=== PATIENT | male | born 1935 | race Caucasian/White ===

== ENCOUNTER → 2023-07-22 | Outpatient (CLI) | payer MEDICARE ==
[2023-07-22 16:13] LABS: HCT 44.7 % (39.6-50.0); MCH 29.5 pg (27.0-32.0); MCHC 33.6 g/dL (32.0-37.0); Mean Platelet Volume 11.5 FL (9.5-12.2); NRBC Per 100 WBC 0 X 10*3/uL (0.00-0.01); Platelet Count 193 X 10*3/uL (140-440); RBC 5.08 X 10*6/uL (4.40-5.60); RDW 13.8 % (11.5-14.5); WBC 6.58 X 10*3/uL (4.50-10.00)
[2023-07-22 16:25] LABS: Prothrombin Time 11.3 sec (10.0-12.5)
[2023-07-22 18:32] LABS: ALT 24 U/L (10-49); AST 30 U/L (14-35); Albumin 4.4 g/dL (3.8-4.9); Albumin/Globulin Ratio 1.83 Ratio (1.60-3.17); Alkaline Phosphatase 72 U/L (41-126); Blood Urea Nitrogen 12.3 mg/dL (9.0-27.0); Calcium 9.7 mg/dL (8.7-10.3); Carbon Dioxide 22.9 mmol/L (21.6-31.8); Chloride 107 mmol/L (96-109); Globulin 2.4 g/dL (1.6-3.3); Glucose 94 mg/dL (70-110); Potassium 4.5 mmol/L (3.5-5.5); Sodium 142 mmol/L (135-145); Total Bilirubin 0.5 mg/dL (0.3-1.2); Total Protein 6.8 g/dL (6.2-8.2)
[2023-07-22 20:36] LABS: Appearance,Urine Cloudy (Clear); Bilirubin,Urine Negative (Negative); Blood,Urine Trace (Negative); Color,Urine Yellow (Yellow); Ketones,Urine Negative (Negative); Nitrite,Urine Positive (Negative); PH, Urine 5.5; Specific Gravity,Urine 1.017 (1.001-1.030); Urobilinogen,Urine 0.2 E.U./DL
[2023-07-22 20:39] LABS: Bacteria,Urine 3+ (None Seen)
== END | disposition home or self-care (01) ==
LOC: LABPAT 11:05
PROVIDERS: ATTEND Orthopaedic Surgery
DX: Z01.818 Encounter for other preprocedural examination (principal); M17.11 Unilateral primary osteoarthritis, right knee
CPT/HCPCS: 80053; 81001; 85027; 85610; 85730; 87070; 93005

== ENCOUNTER 2023-08-19 05:41 | Day surgery (SDC) | payer MEDICARE ==
[~2023-08-19 05:41] MED LIST: ACETAMINOPHEN TAB 500 MG TAB PO PRN; GABAPENTIN 300 MG CAP PO PRN; MELOXICAM 7.5 MG TAB PO PRN; TRANEXAMIC 1,000 MG/100ML-NACL 1,000 MG in SALINE 1 100ML.BAG IVPB PRN; VANCOMYCIN 1,000 MG in SODIUM CHLORIDE 0.9% 250 ML IVPB PRN
[2023-08-19] MEDS ORDERED: HYDROmorphone 0.5 MG/0.5 ML SYRINGE IVP PRN ×4 (05:52→08:43)
[2023-08-19] MEDS ORDERED: ONDANSETRON 4 MG/2 ML VIAL IVP ONE ×2 (05:52→06:24)
[2023-08-19] MEDS ORDERED: LIDOCAINE 1% (10MG/ML) FOR IV START INTRADERMA PRN (05:52)
[2023-08-19] MEDS ORDERED: MIDAZOLAM 2 MG/2 ML VIAL IVP ONE (06:38)
[2023-08-19] MEDS ORDERED: DEXAMETHASONE SOD PHOSPHATE 4 MG/ML 1 ML VIAL IVP ONE (06:41)
[2023-08-19] MEDS: LACTATED RINGERS 1,000 ML IV SCH ×2 (06:41→10:05)
[2023-08-19] MEDS ORDERED: ceFAZolin 1,000 MG in SODIUM CHLORIDE 0.9% 1,000 ML IRRIGATION ONE (07:01)
--- NOTE | 2023-08-19 07:28 | P.ANPRN ---
Procedure Note - Anesthesia - Nerve Block Performed Right Adductor Canal Infusion Time Out Performed: Yes Date of Procedure: 08/19/23 Procedure Start Time: 06:37 Procedure Stop Time: 06:43 Location of Patient: PreOp Indication: Acute Post-Operative Pain, Requested by Surgeon Sedation Type: Sedate with meaningful contact maintained Preparation: Sterile Prep, Sterile Dressing Position: Supine Catheter: Indwelling Needle Types: Pajunk Needle Gauge: 18 Ultrasound used to visualize needle placement: Yes Ultrasound used to observe medication spread: Yes Injectate: 0.5% Ropivacaine (see comment for volume) (15 ml + 10 ml ns + 4 mg dexamethasone) Blood Aspirated: No Pain Paresthesia on Injection Noted: No Resistance on Injection: Normal Image Stored and Saved: Yes Events: Uneventful and Well Tolerated
[2023-08-19] MEDS ORDERED: ROPIVACAINE 1,100 MG, SODIUM CHLORIDE 0.9% 500 ML 330 ML, EMPTY PAIN BALL 1 EACH MISCELLANE PRN ×2 (07:30)
--- NOTE | 2023-08-19 07:30 | P.ANPRN ---
Procedure Note - Anesthesia - Nerve Block Performed Right iPack Single Time Out Performed: Yes Date of Procedure: 08/19/23 Procedure Start Time: 06:44 Procedure Stop Time: 06:52 Location of Patient: PreOp Indication: Acute Post-Operative Pain, Requested by Surgeon Sedation Type: Sedate with meaningful contact maintained Preparation: Sterile Prep Position: Left Lateral Needle Types: Pajunk Needle Gauge: 21 Ultrasound used to visualize needle placement: Yes Ultrasound used to observe medication spread: Yes Injectate: 0.5% Ropivacaine (see comment for volume) (15 ml + 10 ml NS + 4 mg dexamethasone) Blood Aspirated: No Pain Paresthesia on Injection Noted: No Resistance on Injection: Normal Image Stored and Saved: Yes Events: Uneventful and Well Tolerated
--- NOTE | 2023-08-19 08:10 | P.OP ---
Date of Procedure: 08/19/23 Preoperative Diagnosis: Severe osteoarthritis right knee Postoperative Diagnosis: Severe osteoarthritis right knee Procedure(s) Performed: Right total knee arthroplasty Implants: Harden [employer] Nephew Journey II CR Oxinium cruciate retaining femoral component size 4, right Harden [employer] Nephew Journey nonporous tibial baseplate size 3, right Harden [employer]hew Journey II, XLPE Deep Dished articular insert, size 9 mm, Size 3- 4, right Harden [employer]hew Journey Apolonia II resurfacing patellar component, oval, 32 mm All components were cemented using Palacos R bone cement The articulation is Oxinium on polyethylene Anesthesia: spinal Surgeon: Jose Palmer Orthopedics Teacher #1: Tricia Dominguez Estimated Blood Loss (ml): 30 Pathology: none sent Condition: stable Disposition: PACU Indications for Procedure: The patient's knee is end-stage, and conservative management has failed. The operation of knee replacement has been discussed at length in the office, as well as potential risks and complications. These are inclusive of, but not limited to: Infection, bleeding, scarring, discomfort, stiffness, blood vessel and nerve damage, need for further surgery, failure to relieve symptoms, persistence, recurrence, or worsening of problems, loosening, dislocation, wear, blood clot, pulmonary embolism, , gait dysfunction, stiffness, and other risks as discussed in the office. Patient elects to proceed and the consent form has been signed. Operative Findings: The operative findings are consistent with severe osteoarthritis of the right knee Description of Procedure: The patient was seen in the preoperative area, the consent was reviewed and the operative site was marked with a skin marker. The patient verified the procedure and the operative site. An adductor canal pain catheter and an iPACK block were placed by anesthesia in the preoperative area. The patient was then brought to the operating room and positioned on the operating room table in the supine position. Preoperative antibiotics and a gram of tranexamic acid were given intravenously. A spinal anesthetic was administered by the anesthesia department. Care was taken to make sure that all pressure points were adequately padded. A tourniquet was placed on the upper thigh and the lower extremity was prepped with ChloraPrep and draped in usual sterile fashion. A universal time-out was then performed which confirmed the patient's name, surgical site, ALLERGIES, and consent. The lower extremity was then exsanguinated and tourniquet was inflated to 250 mmHg. A standard anterior midline approach to the knee was performed. The skin and subcutaneous tissue were sharply dissected down to the patellar tendon. A medial parapatellar arthrotomy was then performed. The knee was then extended, the patellar was everted, and the knee was flexed. The infra-patellar fat pad was removed in order to enhance exposure. The anterior horns of both menisci were excised, and a release was performed to the posterior medial aspect of the knee. On gross visual inspection, there was complete loss of articular cartilage in the medial and patellofemoral joint spaces. There was also significant cartilage damage in the lateral compartment. There were multiple periarticular osteophytes globally about the knee which were then removed with a Ronguer. The femoral canal was then opened with the 9.5 mm intramedullary drill. The 8 mm intramedullary alfredo was then inserted into the femoral canal with the distal femoral cutting guide set for 5 of valgus. The distal femoral cutting block was then pinned in place. The intramedullary alfredo was then removed, and the distal femur was then cut. The cutting block was then removed and the cut was checked for symmetry. The resected bone was then measured to confirm the appropriate distal femoral resection. Next, the sizing guide was then placed and set for 3 external rotation based off of the epicondylar axis and Austin's line. Pins were then placed and the drill holes, and the femur was sized with the sizing stylus. The pins were then removed, and the sizing guide was then removed. The spikes of the appropriate size femoral block was then placed into the predrilled holes, and malleted into place. Two 45 mm pins were then placed into the fixation holes on the cutting block. An coleman wing was then used to ensure there would be no notching with the anterior cut. The anterior condyles were cut without notching. The anterior chord cut was then performed, followed by the posterior cut, posterior chamfer cut, and the anterior chamfer cut. The collateral ligaments were protected during the entire process. The cutting block was then removed. Any remaining bone and osteophytes were removed from the femur with a Ronguer. Attention was then directed to the tibia. The remaining ACL was removed with a Ronguer, and the tibia was then gently subluxed forward with a large bent knee retractor. Any remaining menisci were excised. The posterior lateral corner was cauterized in order to coagulate the lateral geniculate artery. The extra medullary tibial cutting guide was then placed, set for the appropriate rotation, slope, and depth of resection. The proximal tibia cutting guide was then pinned in place. Proximal tibia was then cut and sized. A curved osteotome was then used to remove any posterior osteophytes from the distal femur. The femoral trial was placed. A narrow saw blade was then used to remove the anterior intracondylar femoral bone. The CR notch trial was then placed. The tibial trial was placed with the appropriate-sized insert. The knee was able to fully extend and flex to 130 and was stable throughout all range of motion. The knee was then extended and the patella was everted. Patella was then measured, and then using an osteotomy guide, the patella was cut at the appropriate level. The patellar component was sized. The patellar drill guide was placed and the patella was drilled. The patella trial was then placed. The knee was then taken through range of motion with the patella trial and the patella tracked normally using the no thumbs technique. The patella trial was t hen removed. The knee was then flexed and lug holes were drilled through the femoral trial and the femoral trial was then removed. The tibial was then re- exposed, and the tibial broach guide was then pinned in place after it was set for the appropriate rotation to allow for the most coverage without overhang. The tibia was then reamed and broached. The femoral canal was plugged with autologous bone. The cut surfaces of bone were then irrigated with pulsatile lavage. The knee was also irrigated with Irrisept solution. The components were then opened, the cement was mixed. Cement was placed on the backside of the femoral, tibial, and patellar components. Cement was then applied to the tibial surface and pressurized into the surface using finger pressurization technique. The tibial component was then applied and excess cement was removed after it was impacted securely noted to be flush with the cut surface. In similar fashion, the cement was applied to the cut femoral surface, pressurized and using finger pressurization the component was impacted in place. Excess cement was removed. The polyethylene spacer was then implanted and locked into position. Patellar component was then applied in a similar technique and the patellar clamp was used to hold patella in place while the cement hardened. The knee was held in full extension while the cement hardened. Once the cement had fully hardened, the knee was reinspected. Any other cement extrusion was removed the final range of motion testing showed range of motion from 0-130 with excellent stability, both medial and laterally and appropriate alignment of the leg. Patella tracked normally. After the cemented hardened, the tourniquet was released and hemostasis was obtained. A second gram of transexamic acid was given intravenously. The knee was again irrigated. The knee was again taken through range of motion and found to be stable throughout all range of motion of 0-130, and the patella tracked normally. The fascia was then closed with 0 Vicryl followed by #2 strata fix suture. The subcutaneous tissue was closed with 3-0 Vicryl and 3-0 strata fix. Exofin glue was used for the skin and placed with the knee in flexion. After the glue had dried, and Optafoam silver impregnated dressing was applied. A lightly compressive dressing was applied using web roll and Jabier wrap. Patient was then transferred to the stretcher and taken to recovery room in stable condition. Sponge and needle counts were correct. The field assistant MARK Harris was required due the complexity surgery and the need for a skilled ophthalmology surgical technician. She assisted in positioning, draping, retraction, and closure of the wound.
[2023-08-19] MEDS ORDERED: NA PHOS,M-B/NA PHOS,DI-BA 133 ML ENEMA RECTAL PRN (08:43)
[2023-08-19] MEDS ORDERED: NALOXONE 0.4 MG/ML 1 ML VIAL IV PRN (08:43)
[2023-08-19] MEDS ORDERED: MAGNESIUM HYDROXIDE 2,400 MG/30 ML CUP PO PRN (08:43)
[2023-08-19] MEDS ORDERED: bisacodyL 10 MG SUPP RECTAL PRN (08:43)
[2023-08-19] MEDS ORDERED: ONDANSETRON 4 MG/2 ML VIAL IVP PRN (08:43)
[2023-08-19] MEDS ORDERED: HYDROcodone/APAP 7.5-325MG 1 EACH TAB PO PRN ×2 (08:45)
--- NOTE | 2023-08-19 09:04 | XR ---
EXAMINATION TYPE: XR knee limited RT DATE OF EXAM: 08/19/2023 COMPARISON: NONE TECHNIQUE: Two views submitted HISTORY: Post op FINDINGS: There is a prosthetic knee in near anatomic alignment. IMPRESSION: 1. Postoperative change.
[2023-08-19] MEDS: SODIUM CHLORIDE 0.9% 1,000 ML IV SCH ×2 (10:06→23:08)
[2023-08-19 13:34] VITALS: RESP 18
--- NOTE | 2023-08-19 17:57 | XR ---
EXAMINATION TYPE: XR knee limited RT DATE OF EXAM: 08/19/2023 CLINICAL HISTORY: Postoperative evaluation Two views of the right knee are submitted. Identified are changes of total knee arthroplasty with femoral and tibial components appearing well seated. Postsurgical soft tissue changes are noted. Alignment is anatomic.
[2023-08-19] MEDS ORDERED: SENNOSIDES-DOCUSATE SODIUM 1 EACH TAB PO SCH (21:00)
[2023-08-19] MEDS: ASPIRIN 325 MG TAB PO SCH (21:18)
[2023-08-20] MEDS: TAMSULOSIN 0.4 MG CAP.ER.24H PO SCH ×2 (02:14→09:14)
[2023-08-20] MEDS: LACTATED RINGERS 1,000 ML IV SCH ×2 (07:36→07:37)
[2023-08-20 08:08] VITALS: BP 110/63; PULSE 57; TEMP 99
[2023-08-20 09:00] LABS: Basophils # (A) 0.01 X 10*3/uL (0.00-0.10); Basophils % (A) 0.1 %; Eosinophils # (A) 0 X 10*3/uL (0.04-0.35); Eosinophils % (A) 0 %; HGB 10.6 g/dL (13.0-17.0); Lymphocytes # (A) 0.65 X 10*3/uL (0.90-5.00); Lymphocytes % (A) 5.4 %; MCH 30.3 pg (27.0-32.0); MCHC 35.3 g/dL (32.0-37.0); MCV 85.7 FL (80.0-97.0); Mean Platelet Volume 11.6 FL (9.5-12.2); Monocytes # (A) 1.11 X 10*3/uL (0.20-1.00); Monocytes % (A) 9.2 %; NRBC Per 100 WBC 0 X 10*3/uL (0.00-0.01); Neutrophils % (A) 84.9 %; Platelet Count 175 X 10*3/uL (140-440); RDW 13.7 % (11.5-14.5); WBC 12.02 X 10*3/uL (4.50-10.00)
[2023-08-20] MEDS ORDERED: atenoloL 50 MG TAB PO SCH (09:00)
[2023-08-20] MEDS ORDERED: ATORVASTATIN 10 MG TAB PO SCH (09:00)
[2023-08-20] MEDS ORDERED: POTASSIUM CHLORIDE ER 10 MEQ TAB.ER.PRT PO SCH (09:00)
[2023-08-20] MEDS ORDERED: LORATADINE 10 MG TAB PO SCH (09:00)
[2023-08-20] MEDS: ASPIRIN 325 MG TAB PO SCH (09:09)
--- NOTE | 2023-08-20 09:10 | P.PN ---
Progress Note - Text 08/20/23 500am 87-year-old male status post total knee replacement by Dr. Garcia height off. Patient has an On-Q pump for postop pain control with the solution running at 8 mL an hour with a VAS of 0 dressing clean dry and intact assessment plan continue On-Q pump infusion
--- NOTE | 2023-08-20 11:25 | P.DS ---
Providers Expected date of discharge: 08/20/23 Attending physician: Jose Palmer Consults: 08/19/23 08:43 Consult Physician Routine Consulting Provider: Noe Hoskins Consult Reason/Comments: medical management Do you want consulting provider notified?: Yes Primary care physician: Herbert Cr - Discharge Diagnosis(es) (1) Osteoarthritis of right knee Current Visit: Yes Status: Acute (2) S/P total knee arthroplasty Current Visit: Yes Status: Acute Hospital Course: This is a 87-year-old male with known history of degenerative arthritis of the right knee. The patient presented for evaluation as an outpatient. After discussion and consideration patient elects to proceed with total knee arthroplasty. The patient is seen preoperatively by Dr. Palmer and medically cleared for surgery by their primary care physician. Patient is admitted to [facility] on 08/19/2023 for total knee arthroplasty. The procedure is performed without complication or sequelae. The patient is doing well postoperatively. Labs and vital signs are stable on day of discharge. On day of discharge patient's knee incision is healing well. There is minimal erythema. There is no drainage noted at this time. There is minimal soft tissue swelling to the knee. Patient has full foot and ankle motion without difficulty or pain. Calf is soft and nontender to palpation. Neurovascular status to the right lower extremity is intact. Patient is discharged home in good condition. Please see med rec for accurate list of home medications. Plan - Discharge Summary Discharge Rx Participant: No New Discharge Prescriptions: New Aspirin 325 mg PO BID #60 tab Sennosides [Senokot] 2 tab PO DAILY PRN #60 tablet PRN Reason: Constipation HYDROcodone/APAP 7.5-325MG [[place] 7.5-325] 1 - 2 tab PO Q6H PRN #32 tab PRN Reason: Pain No Action allopurinoL 100 mg PO HS Donepezil [Aricept] 10 mg PO HS Tamsulosin [Flomax] 0.4 mg PO BID Montelukast Sodium 10 mg PO HS Meclizine [Antivert] 25 mg PO HS Simvastatin 5 mg PO QAM Spironolactone 25 mg PO HS atenoloL 100 mg PO QAM Fenofibrate 145 mg PO HS Cetirizine HCl 10 mg PO QAM Potassium Chloride 10 meq PO QAM Sulfamethox-Tmp 800-160Mg [Bactrim DS 800-160 mg] 1 tab PO BID Discharge Medication List Cetirizine HCl 10 mg PO QAM 08/14/23 [History] Donepezil [Aricept] 10 mg PO HS 08/14/23 [History] Fenofibrate 145 mg PO HS 08/14/23 [History] Meclizine [Antivert] 25 mg PO HS 08/14/23 [History] Montelukast Sodium 10 mg PO HS 08/14/23 [History] Potassium Chloride 10 meq PO QAM 08/14/23 [History] Simvastatin 5 mg PO QAM 08/14/23 [History] Spironolactone 25 mg PO HS 08/14/23 [History] Sulfamethox-Tmp 800-160Mg [Bactrim DS 800-160 mg] 1 tab PO BID 08/14/23 [History] Tamsulosin [Flomax] 0.4 mg PO BID 08/14/23 [History] allopurinoL 100 mg PO HS 08/14/23 [History] atenoloL 100 mg PO QAM 08/14/23 [History] Aspirin 325 mg PO BID #60 tab 08/19/23 [Rx] HYDROcodone/APAP 7.5-325MG [[place] 7.5-325] 1 - 2 tab PO Q6H PRN #32 tab 08/19/23 [Rx] Sennosides [Senokot] 2 tab PO DAILY PRN #60 tablet 08/19/23 [Rx] Follow up [facility]ment[facility]Ref[facility] - As Needed Jose Palmer DO [Doctor of Osteopathic Medicine] - 2 Weeks Activity/Diet/Wound Care/Special Instructions: Weightbearing as tolerated with a walker. CPM 5-6h daily as tolerated. Leave dressing intact. Dressing may be removed by home care nurse or by patient in 7 days. Then change dressing twice daily until follow up. May shower with initial dressing intact and after removal. If dressing become saturated, please remove. Recommend use of compression stockings daily until follow up to help prevent swelling and blood clots. May remove at night before sleeping. Please take aspirin 325mg twice daily for 30 days to prevent blood clots. Please follow up with [facility] and call with any questions or concerns, . Discharge Disposition: HOME WITH HOME HEALTH SERVICES
--- NOTE | 2023-08-20 14:19 | P.CONS ---
History of Present Illness - Reason for Consult Consult date: 08/20/23 Medical management - History of Present Illness History of present illness; patient is a 87-year-old gentleman with past medical history significant for hypertension, hyperlipidemia, who presented to the hospital for elective right total knee arthroplasty. Patient was following up outpatient with orthopedics for this right knee pain. Patient has been having right knee pain for the last few years, pain has gradually worsened. Patient has been having a hard time bearing weight on the knee. Patient had tried conservative measures and therapy but it has not helped him. Orthopedics discussed with patient and decision was made to proceed with right total knee arthroplasty, patient underwent procedure on 08/19. Postoperatively internal medicine team were consulted for medical management REVIEW OF SYSTEMS: CONSTITUTIONAL: No fever, no malaise, no fatigue. HEENT: No recent visual problems or hearing problems. Denied any sore throat. CARDIOVASCULAR: No chest pain, orthopnea, PND, no palpitations, no syncope. PULMONARY: No shortness of breath, no cough, no hemoptysis. GASTROINTESTINAL: No diarrhea, no nausea, no vomiting, no abdominal pain. NEUROLOGICAL: No headaches, no weakness, no numbness. HEMATOLOGICAL: Denies any bleeding or petechiae. GENITOURINARY: Denies any burning micturition, frequency, or urgency. MUSCULOSKELETAL/RHEUMATOLOGICAL: Right knee pain ENDOCRINE: Denies any polyuria or polydipsia. The rest of the 14-point review of systems is negative. PHYSICAL EXAMINATION: GENERAL: The patient is alert and oriented x3, not in any acute distress. Well developed, well nourished. HEENT: Pupils are round and equally reacting to light. EOMI. No scleral icterus. No conjunctival pallor. Normocephalic, atraumatic. No pharyngeal erythema. No thyromegaly. CARDIOVASCULAR: S1 and S2 present. No murmurs, rubs, or gallops. PULMONARY: Chest is clear to auscultation, no wheezing or crackles. ABDOMEN: Soft, nontender, nondistended, normoactive bowel sounds. No palpable organomegaly. MUSCULOSKELETAL: Right knee surgical incision seen EXTREMITIES: No cyanosis, clubbing, or pedal edema. NEUROLOGICAL: Gross neurological examination did not reveal any focal deficits. SKIN: No rashes. Assessment and plan Status post right total knee arthroplasty Hypertension Hyperlipidemia Monitor vital signs Monitor CBC Monitor CMP Continue postop care per orthopedics Continue DVT prophylaxis per orthopedics Continue pain management per orthopedics Resume home meds Labs and medication were reviewed.. Continue same treatment. Continue with symptomatic treatment. Resume home medication. Monitor labs and vitals. DVT and GI prophylaxis. Further recommendations as per clinical course of the patient Dictation was produced using [employer] dictation software. please excuse any grammatical, word or spelling errors. Past Medical History Past Medical History: CVA/TIA, Eye Disorder, Hearing Disorder / Deafness, Hyperlipidemia, Hypertension, Memory Impairment, Osteoarthritis (OA), Prostate Disorder Additional Past Medical History / Comment(s): Recurrent UTIs, TIA 15 yrs ago, BPH, gout, R eye blindness, L eye glaucoma, KIVALINA/hearing aides History of Any Multi-Drug Resistant Organisms: None Reported Past Surgical History: Joint Replacement Additional Past Surgical History / Comment(s): Total L knee, colonoscopy Past Anesthesia/Blood Transfusion Reactions: No Reported Reaction Past Psychological History: No Psychological Hx Reported Additional Psychological History / Comment(s): Pt resides alone. He uses a cane. He drives. Smoking Status: Former smoker Past Alcohol Use History: Rare Additional Past Alcohol Use History / Comment(s): Pt started smoking as a teen and quit 1992. Past Drug Use History: None Reported - Past Family History Mother Family Medical History: Cancer Father Family Medical History: No Reported History Medications and Allergies Home Medications Medication Instructions Recorded Confirmed Type Cetirizine HCl 10 mg PO QAM 08/14/23 08/19/23 History Donepezil [Aricept] 10 mg PO HS 08/14/23 08/19/23 History Fenofibrate 145 mg PO HS 08/14/23 08/19/23 History Meclizine [Antivert] 25 mg PO HS 08/14/23 08/19/23 History Montelukast Sodium 10 mg PO HS 08/14/23 08/19/23 History Potassium Chloride 10 meq PO QAM 08/14/23 08/19/23 History Simvastatin 5 mg PO QAM 08/14/23 08/19/23 History Spironolactone 25 mg PO HS 08/14/23 08/19/23 History Sulfamethox-Tmp 800-160Mg [Bactrim 1 tab PO BID 08/14/23 08/14/23 History DS 800-160 mg] Tamsulosin [Flomax] 0.4 mg PO BID 08/14/23 08/19/23 History allopurinoL 100 mg PO HS 08/14/23 08/19/23 History atenoloL 100 mg PO QAM 08/14/23 08/19/23 History Aspirin 325 mg PO BID #60 tab 08/19/23 Rx HYDROcodone/APAP 7.5-325MG [[place] 1 - 2 tab PO Q6H PRN #32 tab 08/19/23 Rx 7.5-325] Sennosides [Senokot] 2 tab PO DAILY PRN #60 tablet 08/19/23 Rx Allergies Allergy/AdvReac Type Severity Reaction Status Date / Time No Known Allergies Allergy Verified 08/19/23 06:13 Physical Exam Vitals: Vital Signs Temp Pulse Resp BP Pulse Ox 08/20/23 07:11 99.0 F 57 L 18 110/63 98 08/20/23 00:40 98.4 F 63 18 102/63 96 08/19/23 19:00 97.4 F L 60 18 113/75 95 08/19/23 16:50 54 L 131/55 98 Intake and Output 08/19/23 08/20/23 08/20/23 22:59 06:59 14:59 Output Total 1000 Balance -1000 Output: Urine 1000 Straight 800 Other: # Voids 1 0 Results CBC & Chem 7: 08/20/23 05:45 Labs: Abnormal Lab Results - Last 24 Hours (Table) 08/20/23 Range/Units 05:45 WBC 12.02 H (4.50-10.00) X 10*3/uL RBC 3.50 L (4.40-5.60) X 10*6/uL Hgb 10.6 L (13.0-17.0) g/dL Hct 30.0 L (39.6-50.0) % Immature Gran # 0.05 H (0.00-0.04) X 10*3/uL Neutrophils # 10.20 H (1.80-7.70) X 10*3/uL Lymphocytes # 0.65 L (0.90-5.00) X 10*3/uL Monocytes # 1.11 H (0.20-1.00) X 10*3/uL Eosinophils # 0 L (0.04-0.35) X 10*3/uL
[2023-08-20] MEDS ORDERED: MECLIZINE 25 MG TAB PO SCH (21:00)
[2023-08-20] MEDS ORDERED: SPIRONOLACTONE 25 MG TAB PO SCH (21:00)
[2023-08-20] MEDS ORDERED: MONTELUKAST 10 MG TAB PO SCH (21:00)
[2023-08-20] MEDS ORDERED: FENOFIBRATE 160 MG TAB PO SCH (21:00)
[2023-08-20] MEDS ORDERED: allopurinoL 100 MG TAB PO SCH (21:00)
[2023-08-20] MEDS ORDERED: DONEPEZIL 10 MG TAB PO SCH (21:00)
== END 2023-08-20 14:06 | disposition home health service (06) ==
LOC: OR 05:41 → 4SSUR 08:39 → OR 08-20 14:06
PROVIDERS: ATTEND Orthopaedic Surgery
DX: M17.11 Unilateral primary osteoarthritis, right knee (principal); G89.18 Other acute postprocedural pain; I10 Essential (primary) hypertension; F10.21 Alcohol dependence, in remission; E78.5 Hyperlipidemia, unspecified; Z86.73 Personal history of transient ischemic attack (TIA), and cerebral infarction without residual deficits; Z96.651 Presence of right artificial knee joint; Z87.891 Personal history of nicotine dependence; Z79.82 Long term (current) use of aspirin; Z79.899 Other long term (current) drug therapy
CPT/HCPCS: 97161; 64999; 64448; 85025; 73560; 27447; C1713; C1776; C1751; J2250; J3370; J1100; J0690 ×2; J2405; J2795